=== PATIENT | female | born 1970 | race Caucasian/White ===

== ENCOUNTER 2018-10-19 15:03 | Emergency (ER) | payer OTHER ==
[~2018-10-19] VITALS: Ht 165.1 cm; Wt 65.8 kg
[2018-10-19 15:10] VITALS: Ht 165.1 cm; Wt 65.8 kg
[2018-10-19 16:51] VITALS: BP 112/72
== END 2018-10-19 16:51 | disposition home or self-care (01) ==
LOC: ED 15:03
DX: S52.121A Displaced fracture of head of right radius, initial encounter for closed fracture (principal); S63.501A Unspecified sprain of right wrist, initial encounter; W01.0XXA Fall on same level from slipping, tripping and stumbling without subsequent striking against object, initial encounter; Y93.89 Activity, other specified; Y92.89 Other specified places as the place of occurrence of the external cause; Y99.8 Other external cause status
CPT/HCPCS: J2270